=== PATIENT | male | born 1960 | race African-American/Black ===

== ENCOUNTER 2022-07-24 11:18 | Inpatient (IN) | payer OTHER ==
[2022-07-24 12:44] VITALS: BMI 17.9
[2022-07-24] MEDS ORDERED: DICYCLOMINE HCL 10 MG CAPSULE PO PRN (17:44)
[2022-07-24] MEDS ORDERED: POLYETHYLENE GLYCOL (HEALTHYLAX) 3350 17 GM PACKET PO PRN (17:44)
[2022-07-24] MEDS ORDERED: LOPERAMIDE HCL 2 MG CAPSULE PO PRN (17:44)
[2022-07-24] MEDS ORDERED: BENZONATATE 200 MG CAPSULE PO PRN (17:44)
[2022-07-24] MEDS ORDERED: MAGNESIUM HYDROX 2400MG/30ML ORAL SUSPENSION 30 ML CUP PO PRN (17:44)
[2022-07-24] MEDS ORDERED: guaiFENesin 600 MG TABLET.ER (FP) PO PRN (17:44)
[2022-07-24] MEDS ORDERED: BENZOCAINE/MENTHOL (CHLORASEPTIC ) LOZENGE MM PRN (17:44)
[2022-07-24] MEDS ORDERED: NALOXONE HCL (KLOXXADO) 8 MG SPRAY NS PRN (17:44)
[2022-07-24] MEDS ORDERED: IBUPROFEN 400 MG TABLET (FP) PO PRN (17:44)
[2022-07-24] MEDS ORDERED: ONDANSETRON *ODT* 4 MG TABLET SL PRN (17:44)
[2022-07-24] MEDS ORDERED: NICOTINE 10 MG CARTRIDGE (INHALER) IH PRN (17:44)
[2022-07-24] MEDS ORDERED: NALOXONE HCL 0.4 MG/ML VIAL IM PRN (17:44)
[2022-07-24] MEDS ORDERED: MAG HYDROX/AL HYDROX/SIMETH 30 ML UNIT-DOSE CUP PO PRN (17:44)
[2022-07-24] MEDS ORDERED: BISMUTH SUBSALICYLATE 524 MG/30 ML PO PRN (17:44)
[2022-07-24] MEDS ORDERED: BACLOFEN 10 MG TABLET (FP) PO PRN (17:44)
[2022-07-24] MEDS ORDERED: NICOTINE POLACRILEX 2 MG GUM BUC PRN (17:44)
[2022-07-24] MEDS: THIAMINE HCL 100 MG TABLET (FP) PO SCH (22:17)
[2022-07-24] MEDS: MELATONIN 5 MG TABLETS PO SCH (22:18)
[2022-07-24] MEDS: hydrOXYzine PAMOATE 25 MG CAPSULE (FP) PO PRN (22:18)
[2022-07-25] MEDS ORDERED: diazePAM 5 MG TABLET PO PRN (09:22)
[2022-07-25] MEDS ORDERED: cloNIDine HCL 0.1 MG TABLET PO PRN (09:22)
[2022-07-25] MEDS ORDERED: methaDONE HCL 10 MG TABLET (FOR DETOX USE ONLY) PO ONE (10:00)
[2022-07-25] MEDS: PRENATAL VITAMINS W/ FOLIC ACID TABLET (FP) PO SCH (10:14)
[2022-07-25] MEDS: diazePAM 5 MG TABLET PO SCH ×3 (10:15→22:49)
[2022-07-25 11:04] LABS: HEMATOCRIT 39.3 % (35.4-49); MCH 28.8 pg (25.7-33.7); MCHC 33.1 g/dl (32.0-35.9); MEAN PLT VOLUME 9.1 fl (7.5-11.1); PLATELET COUNT 175 10^3/uL (134-434); RBC 4.52 M/mm3 (4.00-5.60); RDW 15.5 % (11.9-15.9); WHITE BLOOD COUNT 4.3 K/mm3 (4.0-10.0)
[2022-07-25 11:11] LABS: POTASSIUM 4.7 mmol/L (3.5-5.1)
[2022-07-25 11:17] LABS: ALBUMIN 3.1 g/dl (3.4-5.0); CALCIUM 9.4 mg/dL (8.5-10.1)
[2022-07-25 11:20] LABS: CREATININE 0.8 mg/dL (0.55-1.3)
[2022-07-25 11:22] LABS: BILIRUBIN,TOTAL 0.6 mg/dL (0.2-1)
[2022-07-25 11:23] LABS: TOT PROT 6.8 g/dl (6.4-8.2)
[2022-07-25] MEDS: THIAMINE HCL 100 MG TABLET (FP) PO SCH (22:47)
[2022-07-25] MEDS: MELATONIN 5 MG TABLETS PO SCH (22:48)
[2022-07-26] MEDS: diazePAM 5 MG TABLET PO SCH ×4 (05:33→22:40)
[2022-07-26] MEDS: PRENATAL VITAMINS W/ FOLIC ACID TABLET (FP) PO SCH (10:05)
[2022-07-26] MEDS: THIAMINE HCL 100 MG TABLET (FP) PO SCH (22:39)
[2022-07-26] MEDS: MELATONIN 5 MG TABLETS PO SCH (22:39)
[2022-07-27] MEDS: diazePAM 5 MG TABLET PO SCH ×3 (05:40→22:24)
[2022-07-27] MEDS ORDERED: methaDONE HCL 10 MG TABLET (FOR DETOX USE ONLY) PO ONE (10:00)
[2022-07-27] MEDS: PRENATAL VITAMINS W/ FOLIC ACID TABLET (FP) PO SCH (10:06)
[2022-07-27] MEDS: THIAMINE HCL 100 MG TABLET (FP) PO SCH (22:24)
[2022-07-27] MEDS: MELATONIN 5 MG TABLETS PO SCH (22:24)
[2022-07-28] MEDS: diazePAM 5 MG TABLET PO SCH ×2 (05:59→17:32)
[2022-07-28] MEDS: ACETAMINOPHEN 325 MG TABLET (FP) PO PRN (06:00)
[2022-07-28] MEDS: PRENATAL VITAMINS W/ FOLIC ACID TABLET (FP) PO SCH (10:13)
[2022-07-28] MEDS: MELATONIN 5 MG TABLETS PO SCH (22:26)
[2022-07-28] MEDS: hydrOXYzine PAMOATE 25 MG CAPSULE (FP) PO PRN (22:26)
[2022-07-28] MEDS: THIAMINE HCL 100 MG TABLET (FP) PO SCH (22:26)
[2022-07-28] MEDS: IBUPROFEN 600 MG TABLET (FP) PO PRN (22:27)
[2022-07-29] MEDS ORDERED: diazePAM 5 MG TABLET PO ONE (06:00)
[2022-07-29] MEDS ORDERED: methaDONE HCL 10 MG TABLET (FOR DETOX USE ONLY) PO ONE (10:00)
[2022-07-29] MEDS: PRENATAL VITAMINS W/ FOLIC ACID TABLET (FP) PO SCH (10:17)
[2022-07-29] MEDS: IBUPROFEN 600 MG TABLET (FP) PO PRN (17:56)
[2022-07-29] MEDS ORDERED: BENZOCAINE 20 % GEL TUBE MM PRN (18:48)
[2022-07-29] MEDS: MELATONIN 5 MG TABLETS PO SCH (22:50)
[2022-07-29] MEDS: THIAMINE HCL 100 MG TABLET (FP) PO SCH (22:51)
[2022-07-29] MEDS: ACETAMINOPHEN 325 MG TABLET (FP) PO PRN (22:51)
[2022-07-30] MEDS: hydrOXYzine PAMOATE 25 MG CAPSULE (FP) PO PRN (05:25)
[2022-07-30 07:09] VITALS: RESP 17
[2022-07-30 09:57] VITALS: BP 108/60; PULSE 86; TEMP 98.1
== END 2022-07-30 09:58 | disposition home or self-care (01) | DRG 773 ==
LOC: YASAS 11:18 → Y6N 18:12
PROVIDERS: ADMIT Allergy & Immunology; ATTEND Surgery
PROC: HZ2ZZZZ Detoxification Services for Substance Abuse Treatment (ICD-10-PCS; principal; 2022-07-24)
DX: F11.23 Opioid dependence with withdrawal (principal); F10.230 Alcohol dependence with withdrawal, uncomplicated; F14.20 Cocaine dependence, uncomplicated; F17.210 Nicotine dependence, cigarettes, uncomplicated; K08.89 Other specified disorders of teeth and supporting structures; R94.31 Abnormal electrocardiogram [ECG] [EKG]
CPT/HCPCS: 36415; 71046-TC-FY; 80053; 85027; 86780; 87811; 93005; 93010; C9803-CS; U0003; U0005